=== PATIENT | female | born 1990 | race Caucasian/White ===

== ENCOUNTER 2016-11-19 20:46 | Emergency (ER) | payer MEDICAID ==
[2016-11-19 21:15] VITALS: BP 136/92; PULSE 78; RESP 18; TEMP 97.9; O2SAT 99
--- NOTE | 2016-11-19 21:37 | ED PDOC ---
HPI: Female Pain Time Seen by Provider: 11/19/16 21:19 Chief Complaint (Nursing): Female Genitourinary Chief Complaint (Provider): vaginal irritation History Per: Patient History/Exam Limitations: no limitations Onset/Duration Of Symptoms: Days (4) Current Symptoms Are (Timing): Still Present Quality Of Discomfort: Burning Additional History Per: Patient Additional Complaint(s): 26 y/o female presents for eval of vaginal irritation x 4 days. Patient states she first noted "cheesy" white discharge, which has since spread, with associated swelling, burning. Patient states she had unprotected sex with a new partner recently and is concerned for STD. Denies fever, nausea/vomiting, abdominal/pelvic pain, dysuria, hematuria. Past Medical History Reviewed: Historical Data, Nursing Documentation, Vital Signs Vital Signs: Last Vital Signs Temp 97.9 F 11/19/16 21:10 Pulse 78 11/19/16 21:10 Resp 18 11/19/16 21:10 BP 136/92 H 11/19/16 21:10 Pulse Ox 99 11/19/16 21:10 - Medical History PMH: No Chronic Diseases - Surgical History Surgical History: No Surg Hx - Family History Family History: States: Unknown Family Hx - Allergies Allergies/Adverse Reactions: Allergies Allergy/AdvReac Type Severity Reaction Status Date / Time No Known Allergies Allergy Verified 08/15/14 20:53 Review of Systems ROS Statement: Except As Marked, All Systems Reviewed And Found Negative Genitourinary Female: Positive for: Vaginal Discharge Physical Exam - Reviewed Nursing Documentation Reviewed: Yes Vital Signs Reviewed: Yes - Physical Exam Appears: Positive for: Well, Non-toxic, No Acute Distress Head Exam: Positive for: ATRAUMATIC, NORMAL INSPECTION, NORMOCEPHALIC Skin: Positive for: Normal Color Eye Exam: Positive for: Normal appearance ENT: Positive for: Normal ENT Inspection Cardiovascular/Chest: Positive for: Regular Rate, Rhythm Respiratory: Positive for: Normal Breath Sounds Gastrointestinal/Abdominal: Positive for: Normal Exam Pelvic Exam: Positive for: External Exam Normal, No Cerv. Motion Tender, Discharge (white "clumpy" discharge noted surrounding cervix), Other (exam chaperoned by Kem Ibarra RN). Negative for: Active Bleeding, Cervicitis Back: Positive for: Normal Inspection Extremity: Positive for: Normal ROM Neurologic/Psych: Positive for: Alert, Oriented - ECG O2 Sat by Pulse Oximetry: 99 - Progress ED Course And Treament: genital cultures, urine Patient educated on findings, advised Diflucan for yeast infection. Patient also requesting Prophylactic treatment against STDs. Rocephin IM, Zithromax po also ordered. Patient educated on findings, advised follow up Fingernail Former 2-3 days. Return to ED for worsening/concerning symptoms. Disposition - Clinical Impression Clinical Impression: Vulvovaginal candidiasis, Concern about STD in female without diagnosis - Patient ED Disposition Is Patient to be Admitted: No Counseled Patient/Family Regarding: Studies Performed, Diagnosis, Need For Followup - Disposition Disposition: Routine/Home Disposition Time: 23:39 Condition: GOOD Instructions: Sexually Transmitted Diseases (ED), Vulvovaginal Candidiasis (ED)
[2016-11-19] MEDS ORDERED: Fluconazole 150 MG TAB PO ONE (21:46)
[2016-11-19] MEDS ORDERED: cefTRIAXone (Rocephin) 250 mg Inj IM ONE (21:46)
[2016-11-19] MEDS ORDERED: Sterile Water 10 ML IV ONE (22:11)
[2016-11-19] MEDS ORDERED: cefTRIAXone (Rocephin) 250 mg Inj ONE (22:11)
== END 2016-11-19 23:53 | disposition home or self-care (01) ==
LOC: H.ER 20:46
DX: B37.3 Candidiasis of vulva and vagina (principal)